=== PATIENT | male | born 1990 | race Caucasian/White ===

== ENCOUNTER 2016-10-13 20:51 | Emergency (ER) | payer SELFPAY ==
[~2016-10-13] VITALS: Ht 180.3 cm; Wt 56.7 kg
[2016-10-13 21:28] VITALS: BP 122/81
--- NOTE | 2016-10-13 21:58 | PHYS DOC ---
Past Medical History Past Medical History: Asthma, COPD Past Surgical History: No Surgical History Alcohol Use: Heavy Drug Use: None Adult General Chief Complaint Chief Complaint: DENTAL PROBLEM HPI HPI Patient is a 25 year old male presents the emergency department stating that he is having left upper dental pain and discomfort. He states he's been running fevers at home in which she's been taken Tylenol with no relief. He states that the areas his left upper gums of been red swollen and very tender since yesterday. He denies any nausea vomiting he does however state that he's had a headache and has not been able to get the fever under control. He denies any nausea or vomiting. He states that he thinks he is allergic to amoxicillin. Review of Systems Review of Systems Constitutional: Denies fever or chills [] Eyes: Denies change in visual acuity, redness, or eye pain [] HENT: Denies nasal congestion or sore throat [] Respiratory: Denies cough or shortness of breath [] Cardiovascular: No additional information not addressed in HPI [] GI: Denies abdominal pain, nausea, vomiting, bloody stools or diarrhea [] : Denies dysuria or hematuria [] Musculoskeletal: Denies back pain or joint pain [] Integument: Denies rash or skin lesions [] Neurologic: Denies headache, focal weakness or sensory changes [] Endocrine: Denies polyuria or polydipsia [] Current Medications Current Medications Current Medications Medications (Trade) Dose Ordered Sig/Hugo Start Time Stop Time Status Last Admin Dose Admin Ibuprofen (Motrin) 800 mg 1X ONCE 10/13/16 22:15 10/13/16 22:16 DC 10/13/16 22:28 800 MG Allergies Allergies Allergies Coded Allergies Type Severity Reaction Last Updated Verified No Known Drug Allergies 07/09/14 No Physical Exam Physical Exam Constitutional: Well developed, well nourished, no acute distress, non-toxic appearance. [] HENT: Normocephalic, atraumatic, bilateral external ears normal, oropharynx moist, no oral exudates, nose normal. Bilateral tympanic membranes appear to be normal. Patient with redness noted of the #10 to #14 tooth. Patient also has decayed teeth along those lines. There does not appear to be any pustulous type areas. Eyes: PERRLA, EOMI, conjunctiva normal, no discharge. [] Neck: Normal range of motion, no tenderness, supple, no stridor. [] Cardiovascular:Heart rate regular rhythm, no murmur [] Lungs & Thorax: Bilateral breath sounds clear to auscultation [] Skin: Warm, dry, no erythema, no rash. [] Back: No tenderness Extremities: No tenderness, no cyanosis, no clubbing, ROM intact, no edema. [] Neurologic: Alert and oriented X 3, normal motor function, normal sensory function, no focal deficits noted. [] Psychologic: Affect normal, judgement normal, mood normal. [] Current Patient Data Vital Signs Vital Signs Date Time Temp Pulse Resp B/P (MAP) Pulse Ox O2 Delivery O2 Flow Rate FiO2 10/13/16 21:28 102.0 100 18 122/81 (95) 96 Room Air 102.0 EKG EKG [] Radiology/Procedures Radiology/Procedures [] Course & Med Decision Making Course & Med Decision Making Pertinent Labs and Imaging studies reviewed. (See chart for details) Patient was provided with ibuprofen here in the emergency department. Temperature was repeated was 99.6. Patient will be discharged home in stable condition. He'll be provided with clindamycin with recommendations to follow-up with the distant the next week. Also recommended Tylenol and ibuprofen for fever chills or generalized body aches and discomfort. Patient was provided with signs and symptoms to return back to the emergency department. Patient agrees with discharge instructions treatment regimens and follow-up recommendations. [] Dragon Disclaimer Dragon Disclaimer This electronic medical record was generated, in whole or in part, using a voice recognition dictation system. Departure Departure Impression: Primary Impression: Dental abscess Disposition: 01 HOME, SELF-CARE Condition: STABLE Referrals: NO PCP (PCP) Patient Instructions: Dental Abscess Additional Instructions: Activity as tolerated Medications as prescribed. Tylenol or ibuprofen for fever chills generalized body aches and discomfort. Drink plenty of fluids such as water or Gatorade or propel. Follow-up with the dentist within the next 5-7 days. Return back to emergency department as needed for signs and symptoms of become worse. Scripts Clindamycin Hcl (CLINDAMYCIN HCL) 150 Mg Capsule 3 CAP PO TID for 10 Days, CAP Prov: SABRINA PETE APRN 10/13/16 SABRINA PETE APRN October 13, 2016 21:58
[2016-10-13] MEDS ORDERED: CLIN-44 PO (22:12)
[2016-10-13] MEDS ORDERED: IBUPROFEN 800 MG TABLET. PO ONE (22:15)
== END 2016-10-13 23:15 | disposition home or self-care (01) ==
LOC: ER 22:13
DX: K04.7 Periapical abscess without sinus (principal); J44.9 Chronic obstructive pulmonary disease, unspecified
CPT/HCPCS: 99283

== ENCOUNTER 2017-02-06 23:46 | Emergency (ER) | payer SELFPAY ==
[~2017-02-06 23:46] MED LIST: CLIN150C14 PO
[2017-02-07 00:03] VITALS: BP 125/57
[2017-02-07] MEDS ORDERED: AMOX400S2 PO (00:18)
[2017-02-07] MEDS ORDERED: IBUP-1060 PO (00:18)
[2017-02-07] MEDS ORDERED: TRAM50TA PO (00:18)
--- NOTE | 2017-02-07 00:18 | PHYS DOC ---
Past Medical History Past Medical History: Asthma, COPD Past Surgical History: No Surgical History Alcohol Use: Heavy Drug Use: None Adult General Chief Complaint Chief Complaint: DENTAL PROBLEM HPI HPI Patient is a 26 year old male presents to the emergency department with right lower jaw swelling for 4 days. He states that he has a dental infection and has taken clindamycin which she had left over from a previous prescription. He reports no difficulty with swallowing or phonation, no fever. Review of Systems Review of Systems Constitutional: Denies fever or chills [] Eyes: Denies change in visual acuity, redness, or eye pain [] HENT: Dental pain, facial swelling Respiratory: Denies cough or shortness of breath [] Cardiovascular: No additional information not addressed in HPI [] GI: Denies abdominal pain, nausea, vomiting, bloody stools or diarrhea [] : Denies dysuria or hematuria [] Musculoskeletal: Denies back pain or joint pain [] Integument: Denies rash or skin lesions [] Neurologic: Denies headache, focal weakness or sensory changes [] Endocrine: Denies polyuria or polydipsia [] Allergies Allergies Allergies Coded Allergies Type Severity Reaction Last Updated Verified No Known Drug Allergies 07/09/14 No Physical Exam Physical Exam Constitutional: Well developed, well nourished, no acute distress, non-toxic appearance. [] HENT: Normocephalic, atraumatic, bilateral external ears normal, oropharynx moist, widespread dental caries, right lower gingiva erythematous without pointing or fluctuance. He does have swelling in the right mandible. There is no erythema., no oral exudates, nose normal. Voice is normal[] Eyes: PERRLA, EOMI, conjunctiva normal, no discharge. [] Neck: Normal range of motion, no tenderness, supple without lymphadenopathy, no stridor. [] Cardiovascular:Heart rate regular rhythm, no murmur [] Lungs & Thorax: Bilateral breath sounds clear to auscultation [] Abdomen: Bowel sounds normal, soft, no tenderness, no masses, no pulsatile masses. [] Skin: Warm, dry, no erythema, no rash. [] Back: No tenderness, no CVA tenderness. [] Extremities: No tenderness, no cyanosis, no clubbing, ROM intact, no edema. [] Neurologic: Alert and oriented X 3, normal motor function, normal sensory function, no focal deficits noted. [] Psychologic: Affect normal, judgement normal, mood normal. [] EKG EKG [] Radiology/Procedures Radiology/Procedures [] Course & Med Decision Making Course & Med Decision Making Pertinent Labs and Imaging studies reviewed. (See chart for details) [] Dragon Disclaimer Dragon Disclaimer This electronic medical record was generated, in whole or in part, using a voice recognition dictation system. Departure Departure Impression: Primary Impression: Dental abscess Disposition: HOME, SELF-CARE Condition: STABLE Referrals: NO PCP (PCP) [facility] Patient Instructions: Dental Abscess, Dental Caries Scripts Ibuprofen (IBUPROFEN) 800 Mg Tablet 800 MG PO PRN Q6HRS Y for INFLAMMATION, #20 TAB Prov: OVI IBRAHIM APRN 02/07/17 Tramadol Hcl (TRAMADOL HCL) 50 Mg Tablet 50 MG PO Q6HRS Y for PAIN, #12 TAB 0 Refills Prov: OVI IBRAHIM APRN 02/07/17 Amoxicillin (AMOXICILLIN) 400 Mg/5 Ml Susp.recon 10 ML PO BID, #200 ML Prov: OVI IBRAHIM APRN 02/07/17 OVI IBRAHIM APRN Feb 07, 2017 00:18
== END 2017-02-07 00:27 | disposition home or self-care (01) ==
LOC: ER 23:46
DX: K04.7 Periapical abscess without sinus (principal); K02.9 Dental caries, unspecified; J44.9 Chronic obstructive pulmonary disease, unspecified
CPT/HCPCS: 99283

== ENCOUNTER 2017-06-02 12:42 | Emergency (ER) | payer SELFPAY ==
[2017-06-02] MEDS: IPRATRPIUM/ALBUTEROL 0.5/2.5MG 3 ML NEBU. NEB (13:32)
[2017-06-02 13:33] LABS: OBC FLU VALID
[2017-06-02] MEDS: predniSONE 10 MG TABLET PO (13:44)
[2017-06-02] MEDS: ACETAMINOPHEN 500 MG TABLET PO (13:45)
[2017-06-02] MEDS: BENZONATATE 100 MG CAPSULE. PO (13:45)
[2017-06-02] MEDS: IBUPROFEN 800 MG TABLET. PO (13:45)
[2017-06-02 13:55] LABS: NEGATIVE OBC STREP NEG; POSITIVE OBC STREP POS
== END 2017-06-02 14:20 | disposition home or self-care (01) ==
LOC: ER 12:42
DX: J09.X2 Influenza due to identified novel influenza A virus with other respiratory manifestations (principal); J44.9 Chronic obstructive pulmonary disease, unspecified
CPT/HCPCS: 71020; 87070; 87804; 87804-59; 87880; 94640; 99285-25; J7512; J7620

== ENCOUNTER 2017-07-10 11:15 | Emergency (ER) | payer SELFPAY | END 2017-07-10 12:01 | disposition home or self-care (01) | LOC: ER 11:15 | DX: Z00.00 Encounter for general adult medical examination without abnormal findings (principal); F41.9 Anxiety disorder, unspecified; J44.9 Chronic obstructive pulmonary disease, unspecified; F32.9 Major depressive disorder, single episode, unspecified; F17.200 Nicotine dependence, unspecified, uncomplicated | CPT/HCPCS: 99281 ==

== ENCOUNTER 2017-09-16 13:57 | Emergency (ER) | payer SELFPAY | END 2017-09-16 14:46 | disposition home or self-care (01) | LOC: ER 13:57 | DX: J45.909 Unspecified asthma, uncomplicated (principal); F41.9 Anxiety disorder, unspecified; J44.9 Chronic obstructive pulmonary disease, unspecified; F32.9 Major depressive disorder, single episode, unspecified | CPT/HCPCS: 99283 ==

== ENCOUNTER 2020-10-20 14:46 | Emergency (ER) | payer SELFPAY ==
[~2020-10-20] VITALS: Ht 180.3 cm; Wt 68.6 kg
[~2020-10-20 14:46] MED LIST changes: +AMOX400S2 PO; -CLIN150C14 PO; +CLIN150C15 PO; +FLUT1DIS IH; +IBUP-1060 PO; +OSEL75CA PO; +TRAM50TA PO
[2020-10-20 16:35] LABS: BARBITURATES NEG (NEG); BENZODIAZEPINES NEG (NEG); CANNABINOIDS NEG (NEG); COCAINE NEG (NEG); METHADONE NEG (NEG); OPIATES NEG (NEG); PHENCYCLIDINE NEG (NEG)
[2020-10-20 16:37] LABS: AMPHETAMINE/METHAMPHETAMINE NEG (NEG)
--- NOTE | 2020-10-20 16:42 | PHYS DOC ---
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) Past Surgical History: No Surgical History (MARIA ISABELSABRINA M SET AND EXHIBIT DESIGNER) Smoking Status: Current Some Day Smoker Alcohol Use: Heavy Additional Information: 1 PINT OF WHISKEY A NIGHT Drug Use: None (MARIA ISABELSABRINA M SET AND EXHIBIT DESIGNER) General Adult EDM: Chief Complaint: PSYCH EVALUATION HPI: HPI: Patient is a 29 year old male who presents with depression, anxiety and states he is not suicidal but there are times that he thinks that he will be better off not being here but also states he is afraid of what happens after you and he also has a daughter so he would never do something like that. He does have a gun in the house. He states that with his anxiety he is not currently on any medications and has not seen a therapist or received help for this. He states that he has been here before and they gave him hydroxyzine but that does not seem to be helping him. He states that he is also afraid of being alone and his left to go to [place] on Friday morning and by Friday night he had drink over 1 pint and had a breakdown. He states he usually drinks a pint a day. He states his drinking is how he self medicates. Patient states he is here today because he wants some help. He states that when he had his breakdown his friend was there with him and they called his who then became very anxious and upset because the friend thought that the patient could use the gun on himself. Patient again states that he would never do that. He is not homicidal. (MARIA ISABELSABRINA M [employer] AND EXHIBIT DESIGNER) Review of Systems: Review of Systems: Constitutional: Denies fever or chills. [] Eyes: Denies change in visual acuity. [] HENT: Denies nasal congestion or sore throat. [] Respiratory: Denies cough or shortness of breath. [] Cardiovascular: Denies chest pain or edema. [] GI: Denies abdominal pain, nausea, vomiting, bloody stools or diarrhea. [] : Denies dysuria. [] Musculoskeletal: Denies back pain or joint pain. [] Integument: Denies rash. [] Neurologic: Denies headache, focal weakness or sensory changes. [] Endocrine: Denies polyuria or polydipsia. [] Lymphatic: Denies swollen glands. [] Psychiatric: + depression or +anxiety. + Alcoholism [] ([facility]) Heart Score: C/O Chest Pain: No Risk Factors: Risk Factors: DM, Current or recent (<one month) smoker, HTN, HLP, family history of CAD, obesity. Risk Scores: Score 0 - 3: 2.5% MACE over next 6 weeks - Discharge Home Score 4 - 6: 20.3% MACE over next 6 weeks - Admit for Clinical Observation Score 7 - 10: 72.7% MACE over next 6 weeks - Early Invasive Strategies ([facility]) Allergies: Allergies: Allergies Coded Allergies Type Severity Reaction Last Updated Verified No Known Drug Allergies 07/09/14 No ([facility] [employer]IBIT DESIGNER) Physical Exam: PE: Constitutional: Well developed, well nourished, no acute distress, non-toxic appearance. [] HENT: Normocephalic, atraumatic, bilateral external ears normal, oropharynx moist, no oral exudates, nose normal. [] Eyes: PERRLA, EOMI, conjunctiva normal, no discharge. [] Neck: Normal range of motion, no tenderness, supple, no stridor. [] Cardiovascular:Heart rate regular rhythm, no murmur [] Lungs & Thorax: Bilateral breath sounds clear to auscultation [] Abdomen: Bowel sounds normal, soft, no tenderness, no masses, no pulsatile masses. [] Skin: Warm, dry, no erythema, no rash. [] Back: No tenderness, no CVA tenderness. [] Extremities: No tenderness, no cyanosis, no clubbing, ROM intact, no edema. [] Neurologic: Alert and oriented X 3, normal motor function, normal sensory function, no focal deficits noted. [] Psychologic: Affect normal, judgement normal, mood normal. Normal physical exam [] ([facility] [employer] DESIGNER) Current Patient Data: Vital Signs: Vital Signs Date Time Temp Pulse Resp B/P (MAP) Pulse Ox O2 Delivery O2 Flow Rate FiO2 10/20/20 15:17 98.4 78 18 151/104 (120) 98 Room Air 98.4 ([facility] [employer] [facility] [employer] DES[facility]) EKG: EKG: [] (SABRINA NICOLAS APRN) Radiology/Procedures: Radiology/Procedures: [] (SBARINA NICOLAS APRN) Course & Med Decision Making: Course & Med Decision Making Pertinent Labs and Imaging studies reviewed. (See chart for details) See HPI. I talked to [place]o with PAT and states that Katie will be in to see the patient. Patient is calm and cooperative. He is alert and oriented x4. Ambulatory with a steady gait. Speaks in full clear sentences. Vital signs are within normal limits. Skin pink warm and dry. Patient is seen by Katie with PAT team. She made a safety plan and gave him resources. Patient is also agreed to call his primary care doctor on Friday. Patient is stable and safe to go home. Patient has a stable and good support system at home. [] (SABRINA NICOLAS APRN) Dragon Disclaimer: Dragon Disclaimer: This electronic medical record was generated, in whole or in part, using a voice recognition dictation system. (SABRINA NICOLAS APRN) Departure Departure Impression: Primary Impression: Anxiety Disposition: 01 HOME / SELF CARE / HOMELESS Condition: STABLE Referrals: NO PCP (PCP) Patient Instructions: Anxiety and Panic Attacks, Depression, Adult Additional Instructions: Follow-up with your primary care doctor soon as possible. Drink plenty of fluids. Use the resources that you were given today. If anything worsens you can always come back to the ER. Attending Signature Attending Signature I have reviewed the PA/HEALTH CARE MARKETING MANAGER's note and plan of care. I was available for consultation as needed during the patient's visit in the emergency department. I agree with the clinical impression, plan, and disposition. (MATTIE GÓMEZ DO) SABRINA NICOLAS APRN October 20, 2020 16:42 MATTIE GÓMEZ DO October 21, 2020 06:36
[2020-10-20 17:01] LABS: ACETAMIN < 2 mcg/ml (10-30); ETHANOL < 10 mg/dL (0-10); SALIC < 2.8 mg/dL (2.8-20.0)
[2020-10-20 19:21] VITALS: BP 148/96
== END 2020-10-20 19:23 | disposition home or self-care (01) ==
LOC: ER 14:46
DX: F41.9 Anxiety disorder, unspecified (principal); F32.9 Major depressive disorder, single episode, unspecified; I10 Essential (primary) hypertension; J45.909 Unspecified asthma, uncomplicated
CPT/HCPCS: 36415; 80307; 80329; 99283; G0480